=== PATIENT | female | born 1990 | race Caucasian/White ===

== ENCOUNTER 2016-12-19 12:09 | Emergency (ER) | payer SELFPAY ==
[~2016-12-19] VITALS: Ht 165.1 cm; Wt 63.5 kg
[2016-12-19] MEDS ORDERED: SODIUM CHLORIDE 0.9% 1,000 ML IV ONE ×2 (12:45→14:00)
[2016-12-19 13:09] LABS: Basophils # (auto) 0 uL; Basophils % (auto) 0.4 % (0.0-2.0); Eosinophils # (auto) 0 uL; Hematocrit 38.7 % (36.0-46.0); Hemoglobin 12.9 g/dL (12.2-16.2); Lymphocytes # (auto) 0.8 uL; Lymphocytes % (auto) 7.7 % (10.0-50.0); Mean Corpuscular Hemoglobin 27.7 pg (28.0-32.0); Mean Corpuscular Hgb Conc. 33.3 g/dL (32.0-36.0); Mean Corpuscular Volume 83.1 fL (80.0-100.0); Mean Platelet Volume 10.4 fL (7.4-10.4); Monocytes # (auto) 0.5 uL; Monocytes % (auto) 5.2 % (0.0-12.0); Neutrophils # (auto) 8.5 uL; Neutrophils % (auto) 86.7 % (37.0-80.0); Platelet Count (auto) 191 10^3/uL (140-450); Red Cell Distribution Width 12.7 % (11.6-16.0); White Blood Cell 9.8 10^3/uL (4.4-10.8)
[2016-12-19 13:41] LABS: Urine Bilirubin Negative (Negative); Urine Color Yellow (Yellow); Urine Glucose Normal (Normal); Urine Mucus FEW (None Seen); Urine Nitrite Negative (Negative); Urine RBC 4 /hpf (0 - 4); Urine Squamous Epithelial Cell FEW /hpf (<5); Urine Urobilinogen Normal (Negative)
[2016-12-19 13:41] LABS: Albumin 3.7 g/dL (3.4-5.0); BUN/Creatinine Ratio 8.9; Magnesium 1.9 mg/dL (1.6-2.6)
[2016-12-19 13:42] LABS: Bilirubin, Total 0.4 mg/dL (0.2-1.0); Total Protein 7.5 g/dL (6.4-8.2)
[2016-12-19 13:46] LABS: Urine Blood 2+ /uL (Negative); Urine Ketone 1+ (Negative)
[2016-12-19] MEDS ORDERED: POTASSIUM CHL 20 Meq TABLET PO ONE (14:15)
[2016-12-19] MEDS ORDERED: KETOROLAC TROMETH 30 MG/ML 1ML VIAL IV ONE (14:15)
[2016-12-19] MEDS ORDERED: cefTRIAXone 1GM/50ML D5W 50 ML IV ONE (14:30)
[2016-12-19] MEDS ORDERED: ACETAMINOPHEN 325 MG TAB PO ONE (14:30)
[2016-12-19 15:46] VITALS: BP 99/50
== END 2016-12-19 16:42 | disposition home or self-care (01) ==
LOC: ER 12:09
DX: N39.0 Urinary tract infection, site not specified (principal); R19.7 Diarrhea, unspecified
CPT/HCPCS: 36415; 80053; 81001; 81025; 83735; 85025; 94761; 96361; 96365; 96366; 96375; 99285; G0434; J0696; J1885; J7030

== ENCOUNTER 2018-09-21 18:17 | Emergency (ER) | payer MEDICAID ==
[~2018-09-21] VITALS: Ht 162.6 cm; Wt 54.4 kg
[2018-09-21 18:53] LABS: Basophils # (auto) 0 uL; Basophils % (auto) 0.3 % (0.0-2.0); Eosinophils # (auto) 0 uL; Eosinophils % (auto) 0.3 % (0.0-7.0); Hematocrit 40.3 % (36.0-46.0); Hemoglobin 13.6 g/dL (12.2-16.2); Lymphocytes # (auto) 1.6 uL; Mean Corpuscular Hemoglobin 29.3 pg (28.0-32.0); Mean Corpuscular Hgb Conc. 33.8 g/dL (32.0-36.0); Mean Corpuscular Volume 86.8 fL (80.0-100.0); Monocytes # (auto) 0.6 uL; Neutrophils # (auto) 8.3 uL; Neutrophils % (auto) 78.4 % (37.0-80.0); Platelet Count (auto) 165 10^3/uL (140-450); Red Blood Cells 4.64 10^6/uL (4.0-5.20); Red Cell Distribution Width 12.9 % (11.8-14.3); White Blood Cell 10.6 10^3/uL (4.4-10.8)
[2018-09-21 19:09] LABS: Alanine Aminotransferase 20 U/L (13-56); Albumin 4.3 g/dL (3.4-5.0); Anion Gap 5 (5-15); Aspartate Aminotransferase 13 U/L (15-37); BUN/Creatinine Ratio 16.7; Blood Alcohol < 3.0 mg/dL (0-5); Blood Urea Nitrogen 15 mg/dL (7-18); Calcium 8.7 mg/dL (8.5-10.1); Carbon Dioxide 24 mmol/L (21-32); Chloride 111 mmol/L (98-107); GFR African American > 60 mL/min; GFR Non-African American > 60 mL/min; Glucose 89 mg/dL (74-106); Potassium 3.5 mmol/L (3.5-5.1); Salicylate 2.5 mg/dL (2.8-20.0); Sodium 140 mmol/L (136-145)
[2018-09-21 19:11] LABS: Alkaline Phosphatase 52 U/L (45-117); Bilirubin, Total 0.6 mg/dL (0.2-1.0); Total Protein 7.8 g/dL (6.4-8.2)
[2018-09-21 19:46] LABS: Acetaminophen < 2.0 ug/mL (10-30)
[2018-09-21 20:32] LABS: Urine Bacteria NONE SEEN /hpf (None Seen); Urine Blood Negative /uL (Negative); Urine Mucus MANY (None Seen); Urine Specific Gravity 1.029 (1.001-1.035); Urine WBC 7 /hpf (0 - 5)
[2018-09-21 20:38] LABS: Urine Pregnacy Test Negative (Negative)
[2018-09-21 20:50] LABS: Amphetamine Screen, Urine NEGATIVE (NEGATIVE); Barbiturate Scree,Urine NEGATIVE (NEGATIVE); Benzodiazephine Screen, Urine NEGATIVE (NEGATIVE); Cannabinoid Screen, Urine POSITIVE (NEGATIVE); Cocaine Screen, Urine NEGATIVE (NEGATIVE); Opiate Scree,Urine NEGATIVE (NEGATIVE); Phencyclidine Screen, Urine NEGATIVE (NEGATIVE)
[2018-09-21] MEDS ORDERED: LORazepam 0.5 MG TAB PO ONE (22:15)
[2018-09-22] MEDS ORDERED: LORazepam 0.5 MG TAB PO PRN (05:15)
[2018-09-22] MEDS ORDERED: OLANZapine 5 MG TAB PO SCH (10:00)
[2018-09-22 18:22] VITALS: BP 137/93
== END 2018-09-22 18:40 | disposition short-term general hospital (02) ==
LOC: ER 18:58
DX: R45.851 Suicidal ideations (principal); N39.0 Urinary tract infection, site not specified; F41.9 Anxiety disorder, unspecified; F31.9 Bipolar disorder, unspecified; F12.90 Cannabis use, unspecified, uncomplicated
CPT/HCPCS: 36415; 80053; 80307; 80320; 80329; 81001; 81025; 85025